=== PATIENT | male | born 1985 | race Two or more races ===

== ENCOUNTER 2022-01-14 09:53 | Outpatient (REF) | payer MEDICAID, SELFPAY ==
--- NOTE | 2022-01-14 16:52 | MHC.AU.HFU ---
Hearing Instrument Follow-Up- Binaural Date of Visit: 01/14/22 Follow-Up Summary: Patient obtained a ReSound BTE hearing aid from [facility]. They no longer accept his current insurance, so he has returned to our clinic. The metal tone hook broke on his right hearing aid. He uses a cochlear implant on the left side. Replaced metal tone hook. Performed hearing aid maintenance on the right aid, vacuumed microphones, soaked earmold in denture school cleaner, and retubed. Aid is in good working condition. Charged the transfer of care fee to his insurance since he did not obtain this new hearing aid through our clinic. Recommendations: Recommendations: Hearing instrument maintenance in 6 months, or sooner if needed. Please contact our clinic with any questions or concerns. Patient will call if problems persist. Diagnosis Code(s): Primary Diagnosis: H90.3 Bilateral Sensorineural Hearing Loss Signature: Provider: Chi Nguyen, CCC-A
== END 2022-01-14 09:54 | disposition home or self-care (01) ==
LOC: HO.HAP 09:53
PROVIDERS: Visit Provider Family Medicine
DX: Z46.1 Encounter for fitting and adjustment of hearing aid (principal); H90.3 Sensorineural hearing loss, bilateral
CPT/HCPCS: V5011

== ENCOUNTER 2022-02-25 09:26 | Outpatient (REF) | payer MEDICAID, SELFPAY | END 2022-02-25 09:27 | disposition home or self-care (01) | LOC: HO.HAP 09:26 | PROVIDERS: Visit Provider Nurse Practitioner Family | DX: Z46.1 Encounter for fitting and adjustment of hearing aid (principal); H90.3 Sensorineural hearing loss, bilateral | CPT/HCPCS: V5275 ==

== ENCOUNTER 2022-04-06 11:02 | Outpatient (REF) | payer MEDICAID, SELFPAY | END 2022-04-06 11:03 | disposition home or self-care (01) | LOC: HO.HAP 11:02 | PROVIDERS: Visit Provider Nurse Practitioner Family | DX: Z46.1 Encounter for fitting and adjustment of hearing aid (principal); H90.3 Sensorineural hearing loss, bilateral | CPT/HCPCS: V5264 ==

== ENCOUNTER 2023-01-14 09:00 | Emergency (ER) | payer OTHER, MEDICAID, SELFPAY ==
[2023-01-14 09:14] VITALS: BP 134/83; PULSE 106; RESP 18; TEMP 36.6; O2SAT 98; BMI 35.6
--- NOTE | 2023-01-14 09:27 | ED.ANIMALBIT ---
HPI - Animal Bite General Chief Complaint: Animal Bite Stated Complaint: dog bite on leg Time Seen by Provider: 01/14/23 09:22 Source: patient Mode of arrival: ambulatory Limitations: no limitations History of Present Illness HPI narrative: 37 yo male here with dog bite to left thigh which occurred this morning from a neighbors dog (bandar valdovinos) Unknown rabies status for dog +swelling and pain to left thigh w/ abrasion to skin Related Data Previous Rx's Medication Instructions Recorded amoxicillin 875 mg-potassium 1 tab PO BID #14 tabs 01/14/23 clavulanate 125 mg tablet Allergies Allergy/AdvReac Type Severity Reaction Status Date / Time No Known Allergies Allergy Verified 01/14/23 09:16 [No Known Allergies*] Review of Systems Review of Systems: Yes all other systems are reviewed and are negative Constitutional: Constitutional: Reports no additional constitutional complaints, Denies body ache(s), Denies chills, Denies fever(s), Denies headache(s) and Denies weakness Eyes: Eyes: Reports no additional eye complaints and Denies change in vision ENT: Reports system reviewed and no additional complaints, except as documented, Denies dizziness, Denies headache(s), Denies nasal congestion, Denies nasal discharge and Denies neck pain Cardiovascular: Cardiovascular: Reports no additional cardiovascular complaints, Denies chest pain, Denies leg edema and Denies dyspnea Respiratory: Respiratory: Reports no additional respiratory complaints, Denies cough and Denies dyspnea Gastrointestinal: Gastrointestinal: Reports no additional gastrointestinal complaints, Denies abdominal pain, Denies diarrhea, Denies nausea and Denies vomiting Genitourinary: Genitourinary: Denies urinary incontinence Musculoskeletal: Musculoskeletal: Reports no additional musculoskeletal complaints, Denies back pain, Denies arthralgias, Denies joint swelling, Denies neck pain, Denies numbness and Denies tingling Integumentary/Breasts: Skin/Breast: Reports system reviewed and no additional complaints, except as docu, Denies rash and Reports wounds Neurologic: Reports system reviewed and no additional complaints, except as documented, Denies dizziness, Denies headache(s), Denies numbness, Denies tingling and Denies weakness PMFSH Past Medical History Attestation statement: The following information was validated with the patient. Source: old records reviewed and nursing notes reviewed Physical Exam ED Vital Signs: Vital Signs - 24 hr 01/14/23 09:14 Temperature 97.9 F Pulse Rate 106 H Respiratory Rate 18 Blood Pressure 134/83 Pulse Oximetry 98 Oxygen Delivery Method Room Air BMI result Body Mass Index 35.6 Const General: cooperative, healthy appearing, comfortable and no acute distress Orientation/consciousness: patient oriented x3 Limitations: no limitations HENMT Head: Yes normal to inspection Ears: hearing grossly normal bilaterally Eyes General: appearance normal, both eyes and all related structures Pupils: Equal, round and reactive pupils present Neck Neck: Yes normal visual inspection Chest Chest palpation & inspection: normal inspection of the chest Resp Effort & Inspection: normal respiratory effort Cardio Peripheral pulses: Peripheral pulses 2+ throughout GI Inspection: Yes normal to inspection Neuro General: patient oriented x3 and moves all extremities Cranial nerves: Yes Equal, round and reactive pupils present Cognition (Neuro): normal cognition Gait exam (Neuro): Normal gait present Extrem Other: To the left lateral thigh there is an puncture wound with local swelling FROM of the extremity No active bleeding Medical Decision Making Medical Decision Making MDM Narrative: 37 yo male here wth dog bite to left thigh Will need to cleanse wound Unaware of neighbors dog rabies status Tetanus status unknown Rabies series, tetanus, PO augmentin for home Discharge Plan Discharge Clinical Impression: Dog bite Patient Disposition: Home, Self-Care Instructions: Animal Bite (ED), Rabies (ED) Additional Instructions: Keep the wound clean, covered and dry. Return for signs of infection (redness, fever drainage, odor) Motrin or Tylenol for pain Prescriptions: New amoxicillin-pot clavulanate 875-125 mg tablet 1 tab PO BID Qty: 14 0RF Referrals: Physician,Unknown J [Primary Care Provider] -
--- NOTE | 2023-01-14 09:38 | PC.NURSE ---
Pt reports he was just here for cellulitis a couple of weeks ago, however the redness is not getting better, and has not developed numbness and tingling in his L foot.
[2023-01-14] MEDS: Rabies Immune Globulin/PF 900 UNIT/3 ML VIAL 2449.4 UNIT IM (10:09)
[2023-01-14] MEDS: Diphth,Pertus(ACell),Tet Adult 0.5 ML SYRINGE IM (10:09)
[2023-01-14] MEDS: Rabies Vaccine, Human Diploid (Imovax) 1 ML VIAL IM (10:10)
== END 2023-01-14 10:27 | disposition home or self-care (01) ==
PROVIDERS: Emergency Provider Emergency Medicine
DX: S71.152A Open bite, left thigh, initial encounter (principal); S70.312A Abrasion, left thigh, initial encounter; W54.0XXA Bitten by dog, initial encounter; Y93.9 Activity, unspecified; Y92.9 Unspecified place or not applicable; Y99.9 Unspecified external cause status; Z29.14 Encounter for prophylactic rabies immune globulin; Z20.3 Contact with and (suspected) exposure to rabies; Z79.899 Other long term (current) drug therapy; Z23 Encounter for immunization
CPT/HCPCS: 90375; 90471; 90472; 90675; 90715; 96372; 99284

== ENCOUNTER 2023-01-17 14:48 | Outpatient (REF) | payer OTHER, MEDICAID, SELFPAY | END 2023-01-17 14:49 | disposition home or self-care (01) | LOC: HO.MDS 14:48 | PROVIDERS: Visit Provider Nurse Practitioner Family | DX: S71.152A Open bite, left thigh, initial encounter (principal); W54.0XXA Bitten by dog, initial encounter; Y93.9 Activity, unspecified; Y92.9 Unspecified place or not applicable; Y99.9 Unspecified external cause status; Z20.3 Contact with and (suspected) exposure to rabies | CPT/HCPCS: 90471; 90675 ==

== ENCOUNTER 2023-01-24 07:22 | Outpatient (REF) | payer OTHER, MEDICAID, SELFPAY | END 2023-01-24 07:23 | disposition home or self-care (01) | LOC: HO.MDS 07:22 | PROVIDERS: Visit Provider Nurse Practitioner Family | DX: S71.152A Open bite, left thigh, initial encounter (principal); W54.0XXA Bitten by dog, initial encounter; Y93.9 Activity, unspecified; Y92.9 Unspecified place or not applicable; Y99.9 Unspecified external cause status; Z20.3 Contact with and (suspected) exposure to rabies | CPT/HCPCS: 90471; 90675 ==

== ENCOUNTER 2024-08-12 09:03 | Inpatient (IN) | payer OTHER, SELFPAY ==
[2024-08-12] VITALS (8 sets, daily range): BP systolic 98–128; BP diastolic 48–81; PULSE 55–95; RESP 18–26; TEMP 36.2–36.9; O2SAT 98–100; BMI 35.0
--- NOTE | ~2024-08-12 | US_ITS ---
EXAMINATION: US ABDOMEN LIMITED HISTORY: RUQ pain TECHNIQUE: Real-time grayscale ultrasound imaging of the right upper quadrant was performed and images were reviewed. COMPARISON: There are no prior studies for comparison. FINDINGS: Liver: The liver is normal in size, but demonstrates mildly increased echotexture, consistent with steatosis. No focal mass or intrahepatic biliary ductal dilatation is identified. There is normal hepatopedal flow in the portal vein. Gallbladder and biliary tree: There are numerous shadowing calculi in the gallbladder. There is no wall thickening or pericholecystic fluid. The patient is focally tender in the region of the gallbladder, consistent with a sonographic Cintron sign. The common bile duct is normal in caliber measuring 3 mm. Right Kidney: The right kidney measures 11.4 cm in length. The right kidney is unremarkable, without evidence of masses, hydronephrosis, or calculi. Pancreas: The pancreatic head and neck are unremarkable. The remainder the pancreas is obscured by bowel gas. Abdominal aorta and inferior vena cava: The visualized portions of the abdominal aorta and inferior vena cava are normal in caliber. There is no free fluid in the right upper quadrant. US/US abdomen limited IMPRESSION: Cholelithiasis with a positive sonographic Cintron sign, compatible with acute cholecystitis. Electronically signed by: Curtis Garner MD 08/12/2024 01:24 PM [facility]
[2024-08-12] MEDS: Ondansetron ODT 4 MG TAB.RAPDIS TRANSLINGU (09:32)
--- NOTE | 2024-08-12 11:25 | ED.NAVMDI ---
HPI - Nausea/Vomiting/Diarrhea General Chief complaint: Abdominal Pain Stated complaint: vomiting Time Seen by Provider: 08/12/24 11:31 Source: patient and family Mode of arrival: ambulatory Limitations: no limitations History of Present Illness ED Provider: LISA PAINTING Narrative: 38 yo male with PMH of hearing impairment he c/o starting upper abdominal pain and n/v since 8pm. He feels weak and tired. He denies a fever. He has chills and feels hot. No recent travel, procedures, no abx use. No sick contacts. Social drinker, prior appendectomy. He states he feels so tired and weak. MD elicited complaint: nausea, vomiting and abdominal pain Onset (ago): day(s) (last night) Description of vomiting: watery and bilious Associated nausea: Yes Associated abdominal pain: Yes Location of pain: epigastric and RUQ Radiation: diffuse Pain consistency: constant Severity: severe Quality: stabbing Exacerbating factors: movement Relieving factors: none Associated symptoms: fever/chills, loss of appetite, malaise and nausea/vomiting Related Data Home Medications ?Medication ?Instructions ?Recorded ?Confirmed betamethasone dipropionate 0.05 % 1 appl topical TUFR 08/12/24 08/12/24 topical ointment bupropion HCl 300 mg 24 hr tablet, 300 mg PO DAILY 08/12/24 08/12/24 extended release dextroamphetamine-amphetamine ER 10 mg PO DAILY@1200 08/12/24 08/12/24 10 mg 24hr capsule,extend release dextroamphetamine-amphetamine ER 30 mg PO DAILY 08/12/24 08/12/24 30 mg 24hr capsule,extend release fluoxetine 20 mg capsule 60 mg PO DAILY 08/12/24 08/12/24 Allergies Allergy/AdvReac Type Severity Reaction Status Date / Time No Known Allergies Allergy Verified 08/12/24 09:30 [No Known Allergies*] Review of Systems Review of Systems: Constitutional : No Weight loss, No Fever, pos Chills ENT/Mouth : No sore throat, No Rhinorrhea Eyes: No Swelling, No Redness Cardiovascular : No Chest Pain, No SOB, NoEdema Respiratory : No Cough, No Sputum, No Wheezing Gastrointestinal : Positive Nausea, Positive Vomiting, no Diarrhea, positive abdominal Pain, No Hematochezia, No Melena Genitourinary : No Dysuria, No Urinary Frequency, No Hematuria, No Urgency Musculoskeletal : No joint pain, No Myalgias, No Joint Swelling Skin : No Skin Lesions, No rash Neuro : No Weakness, No Numbness, No Dizziness, No Headache Psych : No Anxiety/Panic, No Depression All other systems reviewed and are negative. Gastrointestinal: Gastrointestinal: Reports nausea PMFSH Past Medical History Attestation statement: The following information was validated with the patient. Source: old records reviewed Medical History Hearing loss Social History Social History (Updated 08/12/24 @ 11:36 by Niurka Anton DO) Patient Tobacco Use Status: Never used Tobacco Smoked in Last 30 Days: No Use of substances other than those prescribed or required for medical reasons: No Advance Directives: No Advance Directives Information Provided: Yes Do you have a plan to hurt others: No Plan Physical Exam Vital Signs: Vital Signs: Last Vital Signs Temp 98.3 F 08/12/24 12:43 Pulse 73 08/12/24 12:43 Resp 18 08/12/24 12:43 BP 101/48 L 08/12/24 12:43 Pulse Ox 98 08/12/24 12:43 O2 Del Method Room Air 08/12/24 12:43 BMI result Body Mass Index 35.0 Appearance: Alert. Oriented X3. in pain mild acute distress. Eyes: Pupils equal, round and reactive to light. ENT: Pharynx dry MM Neck: Normal inspection. Neck supple. CVS: Normal heart rate and rhythm. Pulses normal. Respiratory: No respiratory distress. Breath sounds normal. Abdomen: Soft and marked ttp in RUQ + noel's sign Skin: Skin warm and dry. Normal skin color. Normal skin turgor. Extremities: No lower extremity edema. No calf ttp Neuro: Oriented X 3. No motor deficit. No sensory deficit. CN2-12 intact Medications Administered Discontinued Medications Generic Name Dose Route Start Last Admin Trade Name Freq PRN Reason Stop Dose Admin Diphenhydramine HCl 25 mg 08/12/24 11:28 08/12/24 11:52 Diphenhydramine Hcl 50 Mg/Ml Vial IVPUSH 08/12/24 11:29 25 mg ONCE ONE Administration Lactated Ringer's 1,000 mls @ 999 mls/hr 08/12/24 11:28 08/12/24 14:09 Lr IV 08/12/24 12:28 Infused .Q1H1M ONE Infusion Lactated Ringer's 1,000 mls @ 999 mls/hr 08/12/24 11:29 08/12/24 14:09 Lr IV 08/12/24 12:29 Infused .Q1H1M ONE Infusion Metoclopramide HCl 10 mg 08/12/24 11:28 08/12/24 11:52 Metoclopramide Hcl 10 Mg/2 Ml Vial IVPUSH 08/12/24 11:29 10 mg ONCE ONE Administration Morphine Sulfate 4 mg 08/12/24 11:29 08/12/24 11:52 Morphine Sulfate 4 Mg/Ml Cartridge IVPUSH 08/12/24 11:30 4 mg ONCE ONE Administration Protocol Ondansetron HCl 4 mg 08/12/24 09:31 08/12/24 09:32 Ondansetron Odt 4 Mg Tab.Rapdis TRANSLINGU 08/12/24 09:32 4 mg ONCE ONE Administration Medical Decision Making Medical Decision Making MDM Narrative: 38 yo male with PMH of appendectomy here with c/o upper abdominal pain now intractable n/v with weakness will obtain POC given his presentation to monitor for DKA, labs, US for gallbladder pathology could also be pancreatitis - IVF x 2L, POC labs, US, basic labs and monitor. Differential Diagnosis Differential Diagnoses: The differential diagnosis associated with the presentation includes viral syndrome, gastritis, pancreatitis, biliary colic Admission/Observation Consideration of admission/observation: Escalation of care including admission/observation considered at this time infection suspected 133pm cultures, lactic acid, zosyn ordered. Lab Data [facility] Lab Attestation statement: I reviewed the patient's lab results. 08/12/24 11:43 08/12/24 11:43 Labs: Lab Results 08/12/24 08/12/24 08/12/24 Range/Units 11:39 11:43 13:10 WBC 13.3 H (4.8-10.8) X10*3/uL RBC 5.33 (4.60-5.80) X10*6/uL Hgb 15.9 (14.0-18.0) g/dl Hct 45.3 (42.0-52.0) % MCV 85.0 (80.0-98.0) fL MCH 29.8 (27.0-33.0) pg MCHC 35.1 (31.0-36.0) g/dl RDW 11.9 (11.0-16.0) % Plt Count 349 (160-400) X10*3/uL MPV 8.5 L (9.4-12.4) fL Immature Gran % (Auto) 0.3 (0.0-0.4) % Neut % (Auto) 88.6 H (45-73) % Lymph % (Auto) 5.8 L (20-40) % Sawyer % (Auto) 5.1 (2-11) % Eos % (Auto) 0.0 (0-4) % Baso % (Auto) 0.2 (0-2) % Lymph # (Auto) 0.8 L (1.2-4.9) X10*3/uL Sawyer # (Auto) 0.7 (0.1-1.2) X10*3/uL Eos # (Auto) 0.0 (0.0-0.4) X10*3/uL Baso # (Auto) 0.0 (0.0-0.2) X10*3/uL Abs Immat Gran (auto) 0.04 H (0.00-0.03) X10*3/uL Absolute Neuts (auto) 11.8 H (2.0-8.3) x10*3/uL Absolute Nucleated RBC 0.000 (0.0-0.012) X10*3/uL Nucleated RBC % (auto) 0.0 (0.0-0.2) /100WBC Sodium 142 (135-145) mmol/L Potassium 4.3 (3.3-5.1) mmol/L Chloride 106 (96-108) mmol/L Carbon Dioxide 25 (22-29) mmol/L Anion Gap 15 (12-20) BUN 13 (9-16) mg/dL Creatinine 0.84 (0.5-1.4) mg/dL Estim Creat Clear Calc 158.7 Estimated GFR > 60 POC Glucose 105 (60-115) mg/dL Random Glucose 134 H (60-115) mg/dL Lactic Acid (0.5-2.0) mmol/L Calcium 10.1 (8.4-10.2) mg/dL Total Bilirubin 1.2 H (0.0-1.0) mg/dL AST 16 (5-37) U/L ALT 18 (0-40) U/L Alkaline Phosphatase 96 (39-117) U/L Total Protein 8.0 (6.5-8.0) g/dL Albumin 4.9 (3.5-5.0) g/dL Lipase 29 (8-78) U/L Influenza Type A (PCR) NEGATIVE (Negative) Influenza Type B (PCR) NEGATIVE (Negative) RSV RNA Qual (PCR) NEGATIVE (Negative) SARS-CoV-2 RNA (RT-PCR) NEGATIVE (Negative) 08/12/24 Range/Units 13:58 WBC (4.8-10.8) X10*3/uL RBC (4.60-5.80) X10*6/uL Hgb (14.0-18.0) g/dl Hct (42.0-52.0) % MCV (80.0-98.0) fL MCH (27.0-33.0) pg MCHC (31.0-36.0) g/dl RDW (11.0-16.0) % Plt Count (160-400) X10*3/uL MPV (9.4-12.4) fL Immature Gran % (Auto) (0.0-0.4) % Neut % (Auto) (45-73) % Lymph % (Auto) (20-40) % Sawyer % (Auto) (2-11) % Eos % (Auto) (0-4) % Baso % (Auto) (0-2) % Lymph # (Auto) (1.2-4.9) X10*3/uL Sawyer # (Auto) (0.1-1.2) X10*3/uL Eos # (Auto) (0.0-0.4) X10*3/uL Baso # (Auto) (0.0-0.2) X10*3/uL Abs Immat Gran (auto) (0.00-0.03) X10*3/uL Absolute Neuts (auto) (2.0-8.3) x10*3/uL Absolute Nucleated RBC (0.0-0.012) X10*3/uL Nucleated RBC % (auto) (0.0-0.2) /100WBC Sodium (135-145) mmol/L Potassium (3.3-5.1) mmol/L Chloride (96-108) mmol/L Carbon Dioxide (22-29) mmol/L Anion Gap (12-20) BUN (9-16) mg/dL Creatinine (0.5-1.4) mg/dL Estim Creat Clear Calc Estimated GFR POC Glucose (60-115) mg/dL Random Glucose (60-115) mg/dL Lactic Acid 2.2 H* (0.5-2.0) mmol/L Calcium (8.4-10.2) mg/dL Total Bilirubin (0.0-1.0) mg/dL AST (5-37) U/L ALT (0-40) U/L Alkaline Phosphatase (39-117) U/L Total Protein (6.5-8.0) g/dL Albumin (3.5-5.0) g/dL Lipase (8-78) U/L Influenza Type A (PCR) (Negative) Influenza Type B (PCR) (Negative) RSV RNA Qual (PCR) (Negative) SARS-CoV-2 RNA (RT-PCR) (Negative) Independent Interpretation I performed an independent interpretation of an: Ultrasound Radiology Impression Discussion of test interpretation with radiology: I have reviewed the radiologist's reading. Independent Historian Clinical information obtained from an independent historian. History obtained from or confirmed by: Spouse Critical Care Time Critical Care Time Critical Care Time: Yes Total Critical Care Time: 45 Attestation: repeat IV morphine with improvement in pain, 3L of IVF to resuscitate I attest to this time spent taking care of the patient Discharge Plan Discharge Clinical Impression: Acute cholecystitis Nausea & vomiting Qualifiers: Vomiting type: unspecified Qualified Code(s): R11.2 - Nausea with vomiting, unspecified Patient Disposition: Admitted As Inpatient Print Language: Portuguese
[2024-08-12] MEDS: Lactated Ringers 1,000 ML 999 ML IV ×3 (11:47→14:56)
[2024-08-12 11:49] LABS: MANUAL DIFF FLAG NO
[2024-08-12 11:52] LABS: Basophils Percent Auto 0.2 % (0-2); Hematocrit 45.3 % (42.0-52.0); Hemoglobin 15.9 g/dl (14.0-18.0); Imm Gran Abs Auto 0.04 X10*3/uL (0.00-0.03); Imm Gran Pct Auto 0.3 % (0.0-0.4); Lymphocytes Absolute Auto 0.8 X10*3/uL (1.2-4.9); Lymphocytes Percent Auto 5.8 % (20-40); Mean Corpuscular HGB Conc 35.1 g/dl (31.0-36.0); Mean Corpuscular Hemoglobin 29.8 pg (27.0-33.0); Mean Platelet Volume 8.5 fL (9.4-12.4); Monocytes Absolute Auto 0.7 X10*3/uL (0.1-1.2); Monocytes Percent Auto 5.1 % (2-11); Neutrophils Absolute Auto 11.8 x10*3/uL (2.0-8.3); Neutrophils Percent Auto 88.6 % (45-73); Platelet Count 349 X10*3/uL (160-400); Red Blood Count 5.33 X10*6/uL (4.60-5.80); Red Cell Distribution Width 11.9 % (11.0-16.0); White Blood Count 13.3 X10*3/uL (4.8-10.8)
[2024-08-12] MEDS: diphenhydrAMINE HCL 50 MG/ML VIAL 25 MG IVPUSH (11:52)
[2024-08-12] MEDS: Morphine Sulfate 4 MG/ML CARTRIDGE IVPUSH (11:52)
[2024-08-12] MEDS: Metoclopramide HCl 10 MG/2 ML VIAL IVPUSH (11:52)
[2024-08-12 12:02] LABS: Lipase 29 U/L (8-78)
[2024-08-12 12:05] LABS: Alanine Aminotransferase 18 U/L (0-40); Albumin Level 4.9 g/dL (3.5-5.0); Alkaline Phosphatase 96 U/L (39-117); Anion Gap 15 (12-20); Aspartate Amino Transferase 16 U/L (5-37); Bilirubin Total 1.2 mg/dL (0.0-1.0); Blood Urea Nitrogen 13 mg/dL (9-16); Calcium 10.1 mg/dL (8.4-10.2); Carbon Dioxide 25 mmol/L (22-29); Chloride 106 mmol/L (96-108); Creatinine Clr Calc Pharmacy 158.7; Estimated Glomerular Filt Rate > 60; Glucose Random 134 mg/dL (60-115); Potassium 4.3 mmol/L (3.3-5.1); Sodium 142 mmol/L (135-145)
[2024-08-12 12:06] LABS: Glucose, Whole Blood 105 mg/dL (60-115)
[2024-08-12 13:58] LABS: Influenza A PCR NEGATIVE (Negative); Influenza B PCR NEGATIVE (Negative); Resp Syncy Virus RNA Qual PCR NEGATIVE (Negative); SARS COV2 PCR INHOUSE NEGATIVE (Negative)
[2024-08-12 14:24] LABS: Lactic Acid 2.2 mmol/L (0.5-2.0)
--- NOTE | 2024-08-12 14:26 | PHA.MEDREC ---
Addendum entered by Samantha Carrillo RPh 08/12/24 14:44: reviewed by [facility]. Original Note: Pharmacy Consult ? Medication Reconciliation Pharmacy has completed the medication reconciliation. Spoke to patient to confirm med list. Patient was able to name all medications and they all matched claims.
[2024-08-12] MEDS: HYDROmorphone HCl 0.5 MG/0.5 ML SYRINGE IVPUSH ×2 (14:55→18:36)
[2024-08-12] MEDS: Piperacillin Sodium/Tazobactam 3.375 GM in 0.9 % Sodium Chloride 50 ML IV ×2 (14:55→18:36)
--- NOTE | 2024-08-12 15:08 | PM.HPGS ---
History of Present Illness History of Present Illness Date of Service: 08/12/24 Chief complaint: vomiting Narrative: Az Quarles is a 38 year old male who presents with a proximally 2 day history of right upper quadrant pain epigastric pain radiating around to his back. Patient had some occasional nausea and vomiting associated with the pain. No diarrhea. No unusual diet. No sick contacts. No recent foreign travel. No new meds. He has had this several times in the past but because of significant progression of symptoms on this episode, he presents to the emergency department which I am workup demonstrates findings consistent with acute cholecystitis. Patient had ultrasound demonstrated cholelithiasis, and sonographic Cintron's sign. Patient was presents here with his . Chart was reviewed and patient evaluated. White count 13.6. LFTs essentially within normal limits although bilirubin was 1.2. [facility] Past Medical History Medical History Hearing loss Social History Social History (Updated 08/12/24 @ 11:36 by Niurka Anton DO) Patient Tobacco Use Status: Never used Tobacco Smoked in Last 30 Days: No Use of substances other than those prescribed or required for medical reasons: No Advance Directives: No Advance Directives Information Provided: Yes Do you have a plan to hurt others: No Plan Meds Allergies Allergy/AdvReac Type Severity Reaction Status Date / Time No Known Allergies Allergy Verified 08/12/24 09:30 [No Known Allergies*] Active Medications: Current Medications Hydromorphone HCl (Hydromorphone Hcl 0.5 Mg/0.5 Ml Syringe) 0.5 mg IVPUSH Q3H PRN; Protocol PRN Reason: Pain, Moderate(Pain Scale 4-6) Last Admin: 08/12/24 14:55 Dose: 0.5 mg Lactated Ringer's (Lr) 1,000 mls @ 999 mls/hr IV .Q1H1M ONE Stop: 08/12/24 15:24 Last Admin: 08/12/24 14:56 Dose: 999 mls/hr Home Medications ?Medication ?Instructions ?Recorded ?Confirmed ?Last Taken ?Type betamethasone dipropionate 0.05 % 1 appl topical TUFR 08/12/24 08/12/24 08/11/24 History topical ointment bupropion HCl 300 mg 24 hr tablet, 300 mg PO DAILY 08/12/24 08/12/24 08/11/24 History extended release dextroamphetamine-amphetamine ER 10 mg PO DAILY@1200 08/12/24 08/12/24 08/11/24 History 10 mg 24hr capsule,extend release dextroamphetamine-amphetamine ER 30 mg PO DAILY 08/12/24 08/12/24 08/11/24 History 30 mg 24hr capsule,extend release fluoxetine 20 mg capsule 60 mg PO DAILY 08/12/24 08/12/24 08/11/24 History Physical Exam Vital Signs: Vital Signs: Last Vital Signs Temp 98.3 F 08/12/24 12:43 Pulse 73 08/12/24 12:43 Resp 18 08/12/24 12:43 BP 101/48 L 08/12/24 12:43 Pulse Ox 98 08/12/24 12:43 O2 Del Method Room Air 08/12/24 12:43 BMI result Body Mass Index 35.0 Eyes: Other: Anicteric Chest: Other: Chest breath sounds bilaterally, HS 1 in 2 GI: Other: Abdomen moderately corpulent, soft. Marked right upper quadrant tenderness. Results Results Labs: Short CBC 08/12/24 Range/Units 11:43 WBC 13.3 H (4.8-10.8) X10*3/uL Hgb 15.9 (14.0-18.0) g/dl Hct 45.3 (42.0-52.0) % Plt Count 349 (160-400) X10*3/uL BMP 08/12/24 11:43 Sodium 142 Potassium 4.3 Chloride 106 Carbon Dioxide 25 BUN 13 Creatinine 0.84 Calcium 10.1 Liver Function 08/12/24 Range/Units 11:43 Total Bilirubin 1.2 H (0.0-1.0) mg/dL AST 16 (5-37) U/L ALT 18 (0-40) U/L Alkaline Phosphatase 96 (39-117) U/L Albumin 4.9 (3.5-5.0) g/dL Assessment and Plan (1) Acute cholecystitis: Status: Acute Plan Risks, benefits, alternatives of laparoscopic possible open cholecystectomy reviewed with the patient and included but not limited to bleeding, infection, recurrence of symptoms, numbness, pain, scarring, bowel or bile duct injury or leak and the patient wishes to proceed with this. He will be an add on case most likely for tomorrow because the OR schedule as quite busy this evening. All questions answered. Patient was in the meantime will be admitted with IV antibiotics and analgesics. Quality Stroke Does the patient have a stroke diagnosis?: No VTE Prior VTE?: No VTE Risk Level:: Surgical - low VTE Device Contraindication: N/A - Device Ordered VTE Drug Contraindication: Treatment Not Indicated Procedures Date of Service Date of Service: 08/12/24
[2024-08-12 16:04] LABS: Reflex Lactate? Lactic Acid Added
[2024-08-12 17:25] LABS: ~Lactic Acid-LAB USE ONLY 0.9 mmol/L (0.5-2.0)
--- NOTE | 2024-08-12 17:51 | PC.NURSE ---
per Dr. Will - plan for pt to go to surgery tomorrow. this RN ordered pt a meal tray at this time
[2024-08-12] MEDS: ondansetron HCL 4 MG/2 ML VIAL IVPUSH (18:36)
[2024-08-12] MEDS: Lactated Ringers 1,000 ML 125 ML IVCONT (18:37)
[2024-08-13] VITALS (9 sets, daily range): BP systolic 115–136; BP diastolic 72–99; PULSE 74–113; RESP 16–20; TEMP 36.3–37.7; O2SAT 94–99
[2024-08-13] MEDS: Piperacillin Sodium/Tazobactam 3.375 GM in 0.9 % Sodium Chloride 50 ML IV ×3 (01:08→12:54)
[2024-08-13] MEDS: 0.9 % Sodium Chloride Flush 3 ML SYRINGE IVFLUSH ×2 (01:22→08:36)
[2024-08-13] MEDS: Lactated Ringers 1,000 ML 125 ML IVCONT (03:00)
--- NOTE | 2024-08-13 08:27 | P.PNGS_ITS ---
Subjective Subjective Date of Service: 08/13/24 Interval history: RUQ pain improved but still c/o some discomfort. Denies further nausea/vomiting. Physical Exam 2 Vital Signs: Vital Signs: Last Vital Signs Temp 98.3 F 08/13/24 02:55 Pulse 113 H 08/13/24 02:55 Resp 20 08/13/24 02:55 BP 136/99 H 08/13/24 02:55 Pulse Ox 97 08/13/24 02:55 O2 Del Method Room Air 08/13/24 02:55 O2 Flow Rate 98 08/12/24 20:24 BMI result Body Mass Index 35.0 Const: General: comfortable, no acute distress and alert O rientation/consciousness: patient oriented x3 Resp: Effort & Inspection: normal respiratory effort Cardio: Rate: tachycardic GI: Inspection: Yes normal to inspection and No distended Palpation (GI): S oft to palpation, Tenderness to palpation present (GI) in the RUQ and Cintron's sign positive and no guarding Skin: General skin exam: no rashes or lesions noted and no jaundice Neuro: General: patient oriented x3 and moves all extremities Objective Data Active Medications Acetaminophen (Acetaminophen 325 Mg Tablet) 650 mg PO Q6H PRN PRN Reason: Pain, Mild 1-3,fever,headache Calcium Carbonate (Calcium Carbonate 750 Mg Tab.Chew) 750 mg PO Q4H PRN PRN Reason: Heartburn Hydromorphone HCl (Hydromorphone Hcl 0.5 Mg/0.5 Ml Syringe) 0.5 mg IVPUSH Q3H PRN; Protocol PRN Reason: Pain, Moderate(Pain Scale 4-6) Last Admin: 08/12/24 18:36 Dose: 0.5 mg Documented By: HOOD Hydromorphone HCl (Hydromorphone Hcl 1 Mg/Ml Syringe) 0.5 mg IVPUSH Q4H PRN; Protocol PRN Reason: Pain, Severe (Pain Scale 7-10) Lactated Ringer's (Lr) 1,000 mls @ 125 mls/hr IVCONT .Q8H [facility] Last Admin: 08/13/24 03:00 Dose: 125 mls/hr Documented By: EMILIA Piperacillin Sod/Tazobactam (Sod 3.375 gm/ Sodium Chloride) 50 mls @ 100 mls/hr IV Q6H [facility] Last Admin: 08/13/24 06:45 Dose: 100 mls/hr Documented By: EMILIA Magnesium Hydroxide (Milk Of Magnesia 30 Ml Oral.Susp) 30 ml PO DAILY PRN PRN Reason: Constipation Melatonin (Melatonin 3 Mg Tablet) 6 mg PO BEDTIME PRN PRN Reason: Insomnia Ondansetron HCl (Ondansetron Hcl 4 Mg/2 Ml Vial) 4 mg IVPUSH Q8H PRN PRN Reason: Nausea and Vomiting Last Admin: 08/12/24 18:36 Dose: 4 mg Documented By: HOOD Sodium Chloride (0.9 % Sodium Chloride Flush 3 Ml Syringe) 3 ml IVFLUSH QSHIFT [facility] Last Admin: 08/13/24 01:22 Dose: 3 ml Documented By: EMILIA Labs 08/12/24 11:43 08/12/24 11:43 Labs: Laboratory Results - last 24 hr 08/12/24 08/12/24 08/12/24 11:39 11:43 13:10 MCV 85.0 MCH 29.8 MCHC 35.1 RDW 11.9 Plt Count 349 MPV 8.5 L Immature Gran % (Auto) 0.3 Neut % (Auto) 88.6 H Lymph % (Auto) 5.8 L [place] % (Auto) 5.1 Eos % (Auto) 0.0 Baso % (Auto) 0.2 Lymph # (Auto) 0.8 L [place] # (Auto) 0.7 Eos # (Auto) 0.0 Baso # (Auto) 0.0 Abs Immat Gran (auto) 0.04 H Absolute Neuts (auto) 11.8 H Absolute Nucleated RBC 0.000 Nucleated RBC % (auto) 0.0 Anion Gap 15 Estim Creat Clear Calc 158.7 Estimated GFR > 60 POC Glucose 105 Random Glucose 134 H Lactic Acid Lactic Acid F/U @ 2Hr Calcium 10.1 Total Bilirubin 1.2 H AST 16 ALT 18 Alkaline Phosphatase 96 Total Protein 8.0 Albumin 4.9 Lipase 29 Influenza Type A (PCR) NEGATIVE Influenza Type B (PCR) NEGATIVE RSV RNA Qual (PCR) NEGATIVE SARS-CoV-2 RNA (RT-PCR) NEGATIVE 08/12/24 08/12/24 13:58 16:53 MCV MCH MCHC RDW Plt Count MPV Immature Gran % (Auto) Neut % (Auto) Lymph % (Auto) [place] % (Auto) Eos % (Auto) Baso % (Auto) Lymph # (Auto) [place] # (Auto) Eos # (Auto) Baso # (Auto) Abs Immat Gran (auto) Absolute Neuts (auto) Absolute Nucleated RBC Nucleated RBC % (auto) Anion Gap Estim Creat Clear Calc Estimated GFR POC Glucose Random Glucose Lactic Acid 2.2 H* Lactic Acid F/U @ 2Hr 0.9 Calcium Total Bilirubin AST ALT Alkaline Phosphatase Total Protein Albumin Lipase Influenza Type A (PCR) Influenza Type B (PCR) RSV RNA Qual (PCR) SARS-CoV-2 RNA (RT-PCR) Procedures Date of Service Date of Service: 08/13/24 Progress Note: A&P Assessment and plan (1) Acute cholecystitis: Status: Acute Plan Plan for lap ccy, possible open later today. All questions answered. Cont IV abx, IVF, NPO status, PRN analgesics. Time Spent With Patient Time: Total time managing care of this patient today ____ minutes. Quality Stroke Does the patient have a stroke diagnosis?: No VTE Prior VTE?: No VTE Risk Level:: Surgical - low VTE Device Contraindication: N/A - Device Ordered VTE Drug Contraindication: Treatment Not Indicated
--- NOTE | 2024-08-13 09:56 | MHC.CM.PN ---
Pt self-care, lives at home with his and daughter. Pts to transport him home at discharge. New HCP completed with pt, now on file. PCP: Dr. Radha Ayala
[2024-08-13 10:24] LABS: Appearance Urine Clear; Color Urine Yellow; Glucose Urine UA Negative (Negative); Leukocyte Esterase Urine Negative (Negative); Nitrite Urine Negative (Negative); PH 6.5 (5.0-9.0); Specific Gravity - Urine 1.015 (1.005-1.025); Urine Blood Negative (Negative); Urine Ketones Negative (Negative); Urine Protein Negative (Neg-Trace)
[2024-08-13] MEDS: Lactated Ringers 1,000 ML 80 ML IVCONT (10:54)
--- NOTE | 2024-08-13 12:06 | P.CONAN_ITS ---
HPI - Anesthesia Eval Consult details Narrative: makayla farley PMFNASH Active Problems Active Problems: All Active Problems Acute cholecystitis (Acute) Nausea & vomiting (Acute) Past Medical History Medical History Hearing loss Family History Family history of problems with anesthesia: No Surgical History History of Problems with Anesthesia: No Social History Social History Household Members: Spouse and Children Housing: Apartment Do you presently have visiting nurse or other home services: No Patient Tobacco Use Status: Never used Tobacco Smoked in Last 30 Days: No Second Hand Smoke Exposure: No Use of substances other than those prescribed or required for medical reasons: No Currently Displaying Signs/Symptoms of Drug Intoxication Withdrawal: No Have you been hit, kicked, punched, or otherwise hurt by someone within the past year? If so, by whom?: No Do you feel safe in your current relationship?: Yes Is there a partner from a previous relationship who is making you feel unsafe now?: No Are you made to feel afraid or neglected: No Are you DNR?: No Advance Directives: No Advance Directives Information Provided: Yes Advance Directives on File: No Do you have a plan to hurt others: No Plan Recently lost weight without trying: No Eating poorly because of decreased appetite: No Nutrition Risks: No Nutritional Risk Poor oral hygiene: No service: No Meds Allergies Allergy/AdvReac Type Severity Reaction Status Date / Time No Known Allergies Allergy Verified 08/12/24 09:30 [No Known Allergies*] Active Medications: Current Medications Acetaminophen (Acetaminophen 325 Mg Tablet) 650 mg PO Q6H PRN PRN Reason: Pain, Mild 1-3,fever,headache Calcium Carbonate (Calcium Carbonate 750 Mg Tab.Chew) 750 mg PO Q4H PRN PRN Reason: Heartburn Hydromorphone HCl (Hydromorphone Hcl 0.5 Mg/0.5 Ml Syringe) 0.5 mg IVPUSH Q3H PRN; Protocol PRN Reason: Pain, Moderate(Pain Scale 4-6) Last Admin: 08/12/24 18:36 Dose: 0.5 mg Hydromorphone HCl (Hydromorphone Hcl 1 Mg/Ml Syringe) 0.5 mg IVPUSH Q4H PRN; Protocol PRN Reason: Pain, Severe (Pain Scale 7-10) Lactated Ringer's (Lr) 1,000 mls @ 125 mls/hr IVCONT .Q8H [facility] Last Admin: 08/13/24 03:00 Dose: 125 mls/hr Piperacillin Sod/Tazobactam (Sod 3.375 gm/ Sodium Chloride) 50 mls @ 100 mls/hr IV Q6H [facility] Last Infusion: 08/13/24 07:20 Dose: Infused Lactated Ringer's (Lr) 1,000 mls @ 80 mls/hr IVCONT .[id number] [facility] Last Admin: 08/13/24 10:54 Dose: 80 mls/hr Magnesium Hydroxide (Milk Of Magnesia 30 Ml Oral.Susp) 30 ml PO DAILY PRN PRN Reason: Constipation Melatonin (Melatonin 3 Mg Tablet) 6 mg PO BEDTIME PRN PRN Reason: Insomnia Ondansetron HCl (Ondansetron Hcl 4 Mg/2 Ml Vial) 4 mg IVPUSH Q8H PRN PRN Reason: Nausea and Vomiting Last Admin: 08/12/24 18:36 Dose: 4 mg Sodium Chloride (0.9 % Sodium Chloride Flush 3 Ml Syringe) 3 ml IVFLUSH QSHIFT [facility] Last Admin: 08/13/24 08:36 Dose: 3 ml Home Medications ?Medication ?Instructions ?Recorded ?Confirmed ?Last Taken ?Type betamethasone dipropionate 0.05 % 1 appl topical TUFR 08/12/24 08/12/24 08/11/24 History topical ointment bupropion HCl 300 mg 24 hr tablet, 300 mg PO DAILY 08/12/24 08/12/24 08/11/24 History extended release dextroamphetamine-amphetamine ER 10 mg PO DAILY@1200 08/12/24 08/12/24 08/11/24 History 10 mg 24hr capsule,extend release dextroamphetamine-amphetamine ER 30 mg PO DAILY 08/12/24 08/12/24 08/11/24 History 30 mg 24hr capsule,extend release fluoxetine 20 mg capsule 60 mg PO DAILY 08/12/24 08/12/24 08/11/24 History Exam Height,Weight and Vital Signs: Height 6 ft 1 in Weight 120.202 kg Last Vital Signs Temp 98.9 F 08/13/24 10:23 Pulse 89 08/13/24 10:23 Resp 16 08/13/24 10:23 BP 116/81 08/13/24 10:23 Pulse Ox 96 08/13/24 10:23 O2 Del Method Room Air 08/13/24 10:23 O2 Flow Rate 98 08/12/24 20:24 Pertinent Lab Results Pertinent Lab Results: Laboratory Tests 08/12/24 08/12/24 08/12/24 11:39 11:43 13:10 WBC 13.3 H RBC 5.33 Hgb 15.9 Hct 45.3 MCV 85.0 MCH 29.8 MCHC 35.1 RDW 11.9 Plt Count 349 MPV 8.5 L Immature Gran % (Auto) 0.3 Neut % (Auto) 88.6 H Lymph % (Auto) 5.8 L [place] % (Auto) 5.1 Eos % (Auto) 0.0 Baso % (Auto) 0.2 Lymph # (Auto) 0.8 L [place] # (Auto) 0.7 Eos # (Auto) 0.0 Baso # (Auto) 0.0 Abs Immat Gran (auto) 0.04 H Absolute Neuts (auto) 11.8 H Absolute Nucleated RBC 0.000 Nucleated RBC % (auto) 0.0 Sodium 142 Potassium 4.3 Chloride 106 Carbon Dioxide 25 Anion Gap 15 BUN 13 Creatinine 0.84 Estim Creat Clear Calc 158.7 Estimated GFR > 60 POC Glucose 105 Random Glucose 134 H Lactic Acid Lactic Acid F/U @ 2Hr Calcium 10.1 Total Bilirubin 1.2 H AST 16 ALT 18 Alkaline Phosphatase 96 Total Protein 8.0 Albumin 4.9 Lipase 29 Urine Color Urine Appearance Urine pH Ur Specific [place] Urine Protein Urine Glucose (UA) Urine Ketones Urine Blood Urine Nitrite Ur Leukocyte Esterase Influenza Type A (PCR) NEGATIVE Influenza Type B (PCR) NEGATIVE RSV RNA Qual (PCR) NEGATIVE SARS-CoV-2 RNA (RT-PCR) NEGATIVE 08/12/24 08/12/24 08/13/24 13:58 16:53 09:55 WBC RBC Hgb Hct MCV MCH MCHC RDW Plt Count MPV Immature Gran % (Auto) Neut % (Auto) Lymph % (Auto) [place] % (Auto) Eos % (Auto) Baso % (Auto) Lymph # (Auto) [place] # (Auto) Eos # (Auto) Baso # (Auto) Abs Immat Gran (auto) Absolute Neuts (auto) Absolute Nucleated RBC Nucleated RBC % (auto) Sodium Potassium Chloride Carbon Dioxide Anion Gap BUN Creatinine Estim Creat Clear Calc Estimated GFR POC Glucose Random Glucose Lactic Acid 2.2 H* Lactic Acid F/U @ 2Hr 0.9 Calcium Total Bilirubin AST ALT Alkaline Phosphatase Total Protein Albumin Lipase Urine Color Yellow Urine Appearance Clear Urine pH 6.5 Ur Specific [place] 1.015 Urine Protein Negative Urine Glucose (UA) Negative Urine Ketones Negative Urine Blood Negative Urine Nitrite Negative Ur Leukocyte Esterase Negative Influenza Type A (PCR) Influenza Type B (PCR) RSV RNA Qual (PCR) SARS-CoV-2 RNA (RT-PCR) Airway Mallampati Class: III TM Dist: >3cm Neck ROM: Full Heart: rrr Lungs: cta Assessment and Plan Assessment Anesthesia Assessment: Anesthesia Plan Discussed Final Anesthetic Review Family History of Problems with Anesthesia: No History of Problems with Anesthesia: No NPO: Yes ASA Class: III (depression, ADHD) Final Preanesthetic Review: No Changes in Pt Med Stat, Meds/Allgs Chart Reviewe d, Consent Obtained/Reviewed and Anes Risks/Benef Reviewed Patient Risk: Intermediate Procedure Risk: Intermediate Anesthetic Plan Anesthetic Plan: GA Disposition: Standard PACU
--- NOTE | 2024-08-13 15:15 | W.PM.OPN ---
Operative Note Operative Note Date of Service: 08/13/24 Narrative: Preoperative diagnosis: [] Symptomatic gallbladder Postop diagnosis: [] Acute phlegmonous cholecystitis Procedure [] laparoscopic cholecystectomy Surgeon: [] [employer] Aid Technician: [] Tylor Type of Anesthesia: [] General Indication for surgery: [] Edematous phlegmonous Gallbladder with omental adhesions to it. Moderately intrahepatic gallbladder. Findings: [] Patient brought to the operating room, placed on operative table supine position, after an adequate level of general anesthesia was induced, the patient's abdomen was prepped and draped in usual sterile fashion. Using a supraumbilical curvilinear incision, Fitch technique was used to insufflate abdominal cavity to 15 mm of CO2. Upper midline and right subcostal ports were placed under direct laparoscopic view, and the patient placed in reverse Trendelenburg position, and tilted to the left. Findings were as noted above. Because of its marked turgidity and phlegmonous findings, gallbladder was initially decompression with an aspirating device to allow graspers to grasped the gallbladder. Gallbladder was grasped using laparoscopic graspers and retracted superiorly and laterally. Appreciable Soft omental adhesions were swept off the gallbladder were the hilum was approached. Cystic artery and cystic duct were each identified, circumferentially skeletonized, traced directly into the gallbladder, and critical view obtained. Each was clipped proximally x2, distally x1, and transected. The gallbladder , which was moderately intrahepatic, was then cauterized from the gallbladder fossa using Bovie. Specimen placed in an Endo-Catch bag, and retrieved through the umbilical port. Phlegmonous gallbladder was evaluated and had multiple large gallstones. Abdominal cavity was copiously irrigated and secured hemostasis. All ports removed under direct laparoscopic view. Wounds were closed in the following manner; umbilical wound had its fascia reapproximated using interrupted 0 Vicryl sutures. Skin wounds were closed using subcuticular 4-0 Vicryl sutures followed by Steri-Strips and sterile dressings. Wounds were infiltrated 0.5% Marcaine at completion. Sponge, needle, and instrument counts reported correct. Patient tolerated the procedure well and emerged from anesthesia stable condition. EBL minimal
[2024-08-13] MEDS: HYDROmorphone HCl 1 MG/ML SYRINGE 0.5 MG IVPUSH (16:21)
[2024-08-13] MEDS: oxyCODONE HCl Immed Release 5 MG TABLET PO (22:30)
[2024-08-14] VITALS: BP 122/76; PULSE 77; RESP 19; TEMP 36.2; O2SAT 96
[2024-08-14] MEDS: 0.9 % Sodium Chloride Flush 3 ML SYRINGE IVFLUSH
[2024-08-14] MEDS: Lactated Ringers 1,000 ML 80 ML IVCONT (06:12)
--- NOTE | 2024-08-14 07:08 | P.PNGS_ITS ---
Subjective Subjective Date of Service: 08/14/24 Interval history: Eventful evening. Incisional discomfort controlled. Physical Exam 2 Vital Signs: Vital Signs: Last Vital Signs Temp 97.2 F 08/14/24 00:00 Pulse 77 08/14/24 00:00 Resp 19 08/14/24 00:00 BP 122/76 08/14/24 00:00 Pulse Ox 96 08/14/24 00:00 O2 Del Method Room Air 08/14/24 00:00 O2 Flow Rate 6 08/13/24 14:15 BMI result Body Mass Index 35.0 GI: Other: Abdomen is soft. All incisions clean dry and intact Objective Data Active Medications Acetaminophen (Acetaminophen 325 Mg Tablet) 650 mg PO Q6H PRN PRN Reason: Pain, Mild 1-3,fever,headache Bupropion HCl (Bupropion Hcl Xl 300 Mg Tab.Er.24h) 300 mg PO DAILY [facility] Calcium Carbonate (Calcium Carbonate 750 Mg Tab.Chew) 750 mg PO Q4H PRN PRN Reason: Heartburn Fluoxetine HCl (Fluoxetine Hcl 20 Mg Capsule) 60 mg PO DAILY [facility] Haloperidol Lactate (Haloperidol Lactate 5 Mg/Ml Vial) 1 mg IVPUSH ONCE PRN PRN Reason: Nausea and Vomiting Hydromorphone HCl (Hydromorphone Hcl 1 Mg/Ml Syringe) 0.5 mg IVPUSH Q4H PRN; Protocol PRN Reason: Pain, Severe (Pain Scale 7-10) Last Admin: 08/13/24 16:21 Dose: 0.5 mg Documented By: RAISA Lactated Ringer's (Lr) 1,000 mls @ 80 mls/hr IVCONT .[id number] [facility] Last Admin: 08/14/24 06:12 Dose: 80 mls/hr Documented By: EMILIA Ketorolac Tromethamine (Ketorolac Tromethamine 30 Mg/Ml Vial) 30 mg IVPUSH Q6H PRN PRN Reason: Pain, Mild (Pain Scale 1-3) Stop: 08/18/24 16:07 Magnesium Hydroxide (Milk Of Magnesia 30 Ml Oral.Susp) 30 ml PO DAILY PRN PRN Reason: Constipation Melatonin (Melatonin 3 Mg Tablet) 6 mg PO BEDTIME PRN PRN Reason: Insomnia Ondansetron HCl (Ondansetron Hcl 4 Mg/2 Ml Vial) 4 mg IVPUSH Q8H PRN PRN Reason: Nausea and Vomiting Last Admin: 08/12/24 18:36 Dose: 4 mg Documented By: HOOD Oxycodone HCl (Oxycodone Hcl Immed Release 5 Mg Tablet) 5 mg PO Q4H PRN PRN Reason: Pain, Moderate(Pain Scale 4-6) Last Admin: 08/13/24 22:30 Dose: 5 mg Documented By: EMILIA Sodium Chloride (0.9 % Sodium Chloride Flush 3 Ml [facility]ringe) [facility] Last Admin: 08/14/24 00:00 Dose: 3 ml Documented By: EMILIA Labs 08/12/24 11:43 08/12/24 11:43 Labs: Laboratory Results - last 24 hr 08/13/24 09:55 Urine Color Yellow Urine Appearance Clear Urine pH 6.5 Ur Specific [place] 1.015 Urine Protein Negative Urine Glucose (UA) Negative Urine Ketones Negative Urine Blood Negative Urine Nitrite Negative Ur Leukocyte Esterase Negative Microbiology Microbiology Results: Microbiology 08/12/24 14:23 Blood Culture - Preliminary Blood - Venous No growth after 24 hours. 08/12/24 13:58 Blood Culture - Preliminary Blood - Venous No growth after 24 hours. Procedures Date of Service Date of Service: 08/14/24 Progress Note: A&P Assessment and plan (1) Status post laparoscopic cholecystectomy: Status: Acute Plan Current plan is to advance diet, out of bed/ambulate, incentive spirometry, DC home today Time Spent With Patient Time: Total time managing care of this patient today ____ minutes. Quality Stroke Does the patient have a stroke diagnosis?: No VTE Prior VTE?: No VTE Risk Level:: Surgical - low VTE Device Contraindication: N/A - Device Ordered VTE Drug Contraindication: Treatment Not Indicated
[2024-08-14 07:33] VITALS: BP 120/66; PULSE 86; RESP 18; TEMP 37.3; O2SAT 98
--- NOTE | 2024-08-14 08:57 | MHC.CM.PN ---
PT MEDICALLY CLEARED FOR DC HOME SELF-CARE AND OUPT FOLLOW-UP W/SURGEON, PT'S FOR TRANSPORT
[2024-08-14] MEDS: FLUoxetine HCl 20 MG CAPSULE 60 MG PO (09:04)
[2024-08-14] MEDS: buPROPion HCl XL 300 MG TAB.ER.24H PO (09:04)
--- NOTE | 2024-08-14 10:08 | HO.POSTANES ---
Post Anesthesia Evaluation Post Anesthesia Evaluation Date of Service: 08/14/24 Vital Signs: Vital Signs Temp Pulse Resp BP Pulse Ox O2 Del Method 08/14/24 07:33 99.1 F 86 18 120/66 98 Room Air 08/14/24 00:00 97.2 F 77 19 122/76 96 Room Air Anesthesia: General Endotracheal-GETA Mental Status: Awake Pain Control: Satisfactory Nausea/Vomiting: None Hydration: Adequate Anesthesia-Related Issues: No Anes. Related Issues
--- NOTE | 2024-08-14 13:02 | PM.DS ---
DS: Providers Provider Date of Service: 08/14/24 <Nayana Snider PA-C - Last Filed: 08/14/24 13:20> Date of admission: 08/12/24 18:14 <Shonna Colon - Last Filed: 08/14/24 13:19> Date of discharge: 08/14/24 <Nayana Snider PA-C - Last Filed: 08/14/24 13:20> Primary care physician: Radha Ayala MD <Shonna Colon - Last Filed: 08/14/24 13:19> Attending physician on admission: Luis Will <Shonna Colon - Last Filed: 08/14/24 13:19> Attending physician on discharge: Luis Will <Shonna Colon - Last Filed: 08/14/24 13:19> Discharging clinician: Luis Will <Shonna Colon - Last Filed: 08/14/24 13:19> DS: Diagnosis Discharge Diagnosis (1) Status post laparoscopic cholecystectomy: Status: Acute <Shonna Colon - Last Filed: 08/14/24 13:19> DS: Summary Hospital Course Hospital Course: Pt presented to ED 08/12/24 with RUQ and epigastric pain, nausea, and vomiting. US ordered and cholelithiasis with gallbladder wall thickening found. Pt found to have acute cholecystitis. Hospital course: Pt underwent laparoscopic cholestectomy 08/13/[address] Will without any complications. Post-op, pts pain is controlled with analgesics. Abdominal exam benign with clean incisions. No jaundice or scleral icterus noted. VSS. Incisional pain well controlled. No vomiting overnight. Pt able to ambulate on his own. No acute events reported overnight. Pt feels comfortable being discharged today. Encouraged to use incentive spirometry x10/hr and ambulate. Pt will be seen in office for follow up in 3 days. <Shonna Colon - Last Filed: 08/14/24 13:19> Status at Discharge Functional status at discharge: independent ambulation <Shonna Colon - Last Filed: 08/14/24 13:19> Overall status at discharge: patient is back to baseline <Shonna Colon - Last Filed: 08/14/24 13:19> Time Attestation Discharge Coordination Time (in mins): 30 <Nayana Snider PA-C - Last Filed: 08/14/24 13:20> Quality: Safe Use of Opioids Does Pt have an Active Cancer Diagnosis on the Problem List?: No <Shonna Colon - Last Filed: 08/14/24 13:19> Quality: Stroke Does the patient have a stroke diagnosis?: No <Shonna Colon - Last Filed: 08/14/24 13:19> Physical Exam Vital Signs: Vital Signs: Last Vital Signs Temp 99.1 F 08/14/24 07:33 Pulse 86 08/14/24 07:33 Resp 18 08/14/24 07:33 BP 120/66 08/14/24 07:33 Pulse Ox 98 08/14/24 07:33 O2 Del Method Room Air 08/14/24 07:33 O2 Flow Rate 6 08/13/24 14:15 BMI result Body Mass Index 35.0 <Shonna Colon - Last Filed: 08/14/24 13:19> GI: Inspection: No distended and Yes incision (clean) <Nayana Snider PA-C - Last Filed: 08/14/24 13:20> Palpation (GI): Soft to palpation and Tenderness to palpation present (GI) (mild incisional tenderness) <Nayana Snider PA-C - Last Filed: 08/14/24 13:20> DS: Data Data Completed and Pending Pending studies at discharge: Pending at discharge 08/13/24 13:26 Surgical [PTH] Routine <Shonna Colon - Last Filed: 08/14/24 13:19> Labs on day of discharge: Preliminary micro results at discharge 08/12/24 14:23 Blood Culture - Preliminary Blood - Venous No growth after 24 hours. 08/12/24 13:58 Blood Culture - Preliminary Blood - Venous No growth after 24 hours. <Shonna Colon - Last Filed: 08/14/24 13:19> Discharge Plan Discharge Anticipated Discharge Date/Time: 08/14/24 07:11 <Shonna Colon - Last Filed: 08/14/24 13:19> Patient Disposition: Home, Self-Care <Shonna Colon - Last Filed: 08/14/24 13:19> Discharge Diagnosis: Acute phlegmonous cholecystitis <Shonna Colon - Last Filed: 08/14/24 13:19> Acute phlegmonous cholecystitis <Nayana Snider PA-C - Last Filed: 08/14/24 13:20> Referrals: Radha Ayala MD [Primary Care Provider] - 1 Week Luis Will MD [Physician] - 1 Week <Shonna Colon - Last Filed: 08/14/24 13:19> Discharge Medications: New hydrocodone-acetaminophen 5-325 mg tablet 1 tab PO Q4-6H PRN (Reason: pain) Qty: 30 0RF Rx Instructions: Partial Fill upon patient request. Continued dextroamphetamine-amphetamine 10 mg capsule,extended release 24hr 10 mg PO DAILY@1200 dextroamphetamine-amphetamine 30 mg capsule,extended release 24hr 30 mg PO DAILY fluoxetine 20 mg capsule 60 mg PO DAILY bupropion HCl 300 mg tablet extended release 24 hr 300 mg PO DAILY betamethasone dipropionate 0.05 % ointment 1 appl topical TUFR <Shonna Colon - Last Filed: 08/14/24 13:19> Discharge Orders: Discharge Order (Routine); Ordered 08/14/24 Ordered By: Luis Will <Shonna Colon - Last Filed: 08/14/24 13:19> Diet: Advance to usual diet <Shonna Colon - Last Filed: 08/14/24 13:19> Advance to usual diet <Nayana Snider PA-C - Last Filed: 08/14/24 13:20> Activity on Discharge: No heavy lifting <Shonna Colon - Last Filed: 08/14/24 13:19> No heavy lifting <Nayana Snider PA-C - Last Filed: 08/14/24 13:20> Stand Alone Forms: Patient Portal Discharge page <Shonna Lozano Last Filed: 08/14/24 13:19> Print Language: Japanese <Shonna Colon - Last Filed: 08/14/24 13:19> Activity Restrictions/Additional Instructions: Ice to wound 20 minutes several times today and tomorrow. May shower tomorrow. Remove outside dressing only. Leave Steri-Strips intact. No strenuous activities <Shonna Colon - Last Filed: 08/14/24 13:19> Care Plan Goals: Convalescence from surgery <Shonna Colon - Last Filed: 08/14/24 13:19> Health Concerns: No acute issues <Shonna Colon - Last Filed: 08/14/24 13:19> Plan of Treatment: Recuperation <Shonna Colon - Last Filed: 08/14/24 13:19> Assessment: Stable <Shonna Colon - Last Filed: 08/14/24 13:19> Discharge Date/Time: 08/14/24 13:04 <Shonna Colon - Last Filed: 08/14/24 13:19>
== END 2024-08-14 13:04 | disposition home or self-care (01) | DRG 419 ==
LOC: HO.ED 15:35 → HO.EDOVER 18:22 → HO.IMC 19:52
PROVIDERS: Admitting Provider Surgery; Emergency Provider Emergency Medicine; PCP Family Medicine; Visit Provider Surgery
PROC: 0FT44ZZ Resection of Gallbladder, Percutaneous Endoscopic Approach (ICD-10-PCS; CPT 47562; principal; 2024-08-13 10:30)
DX: K81.0 Acute cholecystitis (principal); Z20.822 Contact with and (suspected) exposure to COVID-19; Z79.899 Other long term (current) drug therapy
CPT/HCPCS: 47562; 0241U; 36415; 76705; 80053; 81003; 82947; 83605; 83690; 85025; 87040; 88304; 99222; 99285; J0131; J0690; J1100; J1171; J1200; J2003; J2250; J2270; J2405; J2543; J2704; J2765; J2795; J3010; J7120

== ENCOUNTER → 2024-08-12 11:29 | Outpatient (BNV) | payer OTHER, MEDICAID, SELFPAY | PROVIDERS: Emergency Provider Emergency Medicine; PCP Family Medicine; Visit Provider Radiology Diagnostic Radiology | DX: K80.00 Calculus of gallbladder with acute cholecystitis without obstruction (principal) | CPT/HCPCS: 76705 ==

== ENCOUNTER → 2024-08-12 11:59 | Outpatient (BNV) | payer OTHER, MEDICAID, SELFPAY | PROVIDERS: Emergency Provider Emergency Medicine; PCP Family Medicine; Visit Provider Surgery | DX: K81.0 Acute cholecystitis (principal) | CPT/HCPCS: 99222 ==

== ENCOUNTER 2024-11-20 16:21 | Emergency (ER) | payer OTHER, SELFPAY ==
--- NOTE | 2024-11-20 16:22 | ED.SKABFB ---
HPI - Skin/Abscess/Foreign Bdy General Chief complaint: Wound/Laceration Stated complaint: finger laceration w/box estimator Time Seen by Provider: 11/20/24 16:28 Source: patient, RN notes reviewed and old records reviewed Mode of arrival: ambulatory History of Present Illness ED Provider: Tatiana Arredondo PA-C HPI narrative: 39-year-old male no significant past medical history presenting to the ED complaining of laceration to left middle finger s/p using box estimator to cut vinyl ashley in [employer]. Tetanus up-to-date. Denies injury to other area. Denies anticoagulation use Related Data Home Medications ?Medication ?Instructions ?Recorded ?Confirmed betamethasone dipropionate 0.05 % 1 appl topical TUFR 08/12/24 08/12/24 topical ointment bupropion HCl 300 mg 24 hr tablet, 300 mg PO DAILY 08/12/24 08/12/24 extended release dextroamphetamine-amphetamine ER 10 mg PO DAILY@1200 08/12/24 08/12/24 10 mg 24hr capsule,extend release dextroamphetamine-amphetamine ER 30 mg PO DAILY 08/12/24 08/12/24 30 mg 24hr capsule,extend release fluoxetine 20 mg capsule 60 mg PO DAILY 08/12/24 08/12/24 Previous Rx's ?Medication ?Instructions ?Recorded hydrocodone 5 mg-acetaminophen 325 1 tab PO Q4-6H PRN pain #30 tabs 08/13/24 mg tablet Allergies Allergy/AdvReac Type Severity Reaction Status Date / Time No Known Allergies Allergy Verified 11/20/24 16:25 [No Known Allergies*] Review of Systems Review of Systems: Yes all other systems are reviewed and are negative Constitutional: Constitutional: Reports as per [facility] Past Medical History Attestation statement: The following information was validated with the patient. Source: old records reviewed Medical History Hearing loss Social History Social History Household Members: Spouse and Children Housing: Apartment Do you presently have visiting nurse or other home services: No Patient Tobacco Use Status: Never used Tobacco Second Hand Smoke Exposure: No Advance Directives: No Advance Directives Information Provided: No service: No Physical Exam Vital Signs: Vital Signs: Last Vital Signs Temp 96.1 F L 11/20/24 16:23 Pulse 106 H 11/20/24 16:23 Resp 18 11/20/24 16:23 BP 123/93 H 11/20/24 16:23 Pulse Ox 98 11/20/24 16:23 O2 Del Method Room Air 11/20/24 16:23 BMI result Body Mass Index 33.3 Const: General: cooperative, healthy appearing and no acute distress Orientation/consciousness: patient oriented x3 Limitations: no limitations HEENT: Head: Yes normal to inspection and Yes atraumatic Ears: hearing grossly normal bilaterally General nose exam: Normal external nose present Face and sinus: Yes normal facial exam Eyes: General: appearance normal, both eyes and all related structures EOM: EOMs intact bilaterally Neck: Neck: Yes normal visual inspection and Yes no meningeal signs Resp: Effort & Inspection: normal respiratory effort and no respiratory distress Cardio: Rate: regular rate Skin: Other: Small 0.5cm laceration noted to distal left 3rd digit, volar aspect, next to nail, w/active bleeding. Mildly tender to palpation. Full range of motion to digit intact. NV intact Rashes: no rashes Neuro: General: patient oriented x3, tone normal and no meningeal signs Cranial nerves: Yes CN's II-XII intact bilaterally Gait exam (Neuro): Normal gait present Extrem: General: Yes normal to inspection Course Course Course Narrative: -1646--unable to control bleeding with direct pressure. Will soak in Lido w/epi >1725--soaking and lidocaine with epi controlled bleeding. Dermabond applied Results discussed with patient including worrisome signs and symptoms and strict return precautions, and when to return to the emergency department. They verbalized understanding and feel safe for discharge at this time. Medications Administered Discontinued Medications Generic Name Dose Route Start Last Admin Trade Name Freq PRN Reason Stop Dose Admin Lidocaine/Epinephrine 10 ml 11/20/24 16:52 11/20/24 16:53 Lidocaine Hcl 1%/Epi 1:100,000 10 Ml Vial INFILTRATI 11/20/24 16:53 10 ml ONCE ONE Administration Medical Decision Making Medical Decision Making [facility] Narrative: 39-year-old male no significant past medical history presenting to the ED complaining of laceration to left middle finger s/p using box estimator to cut vinyl ashley in [employer]. On exam mildly tachycardic, PE as noted above. Small bleeding laceration noted to left 3rd digit. Low suspicion for fracture, tendon/ligamental injury or deeper wound. No avulsion. No evidence of cellulitis Plan: Repair wound w/dermabond Please refer to course for remaining clinical decision making, interpretation of labs/imaging results, and discussions with consultants and/or family members. Differential Diagnosis Differential Diagnoses: The differential diagnosis associated with the presentation includes As above External Record Review External record reviewed: Inpatient record, Office record, Outpatient record, Prior outpatient labs, Prior outpatient radiology, Primary care record and Outside ED record Tests considered The following testing was considered but not selected: As above Prescription Management I considered prescription management with: Pain Medication and Antibiotic Chronic Conditions Patient?s care impacted by: Other Social Determinants Patient?s care significantly limited by Social Determinants of Health including: Other Social Determinant of Health Procedures Laceration Laceration 1: Site: hand Side (If applicable): left Size (cm): 0.5 Description: linear Depth: simple, single layer Skin layer closed with: other (Dermabond) Discharge Plan Discharge Clinical Impression: Laceration Patient Disposition: Home, Self-Care Instructions: Finger Laceration (ED) Additional Instructions: Your wounds were repaired today in the emergency department. Keep dry and clean. The skin glue will fall off on its own, the longer it is in place the better Avoid getting wet Do not pick at the area If area begins look infected, is red, there is drainage, streaking, or you have fever please return to the emergency department Prescriptions: No Action dextroamphetamine-amphetamine 10 mg capsule,extended release 24hr 10 mg PO DAILY@1200 dextroamphetamine-amphetamine 30 mg capsule,extended release 24hr 30 mg PO DAILY fluoxetine 20 mg capsule 60 mg PO DAILY bupropion HCl 300 mg tablet extended release 24 hr 300 mg PO DAILY betamethasone dipropionate 0.05 % ointment 1 appl topical TUFR hydrocodone-acetaminophen 5-325 mg tablet 1 tab PO Q4-6H PRN (Reason: pain) Qty: 30 0RF Rx Instructions: Partial Fill upon patient request. Referrals: Radha Ayala MD [Primary Care Provider] - 1 week Print Language: Malian
[2024-11-20 16:23] VITALS: BP 123/93; PULSE 106; RESP 18; TEMP 35.6; O2SAT 98; BMI 33.3
[2024-11-20] MEDS: Lidocaine HCl 1%/Epi 1:100,000 10 ML VIAL INFILTRATI (16:53)
--- NOTE | 2024-11-20 16:53 | PC.NURSE ---
anthony administered by Tatiana FELIX
[2024-11-20 17:25] VITALS: BP 123/93; PULSE 106; RESP 18; TEMP 35.6; O2SAT 98
== END 2024-11-20 17:27 | disposition home or self-care (01) ==
PROVIDERS: Emergency Provider Emergency Medicine; PCP Family Medicine
DX: S61.213A Laceration without foreign body of left middle finger without damage to nail, initial encounter (principal); W26.0XXA Contact with knife, initial encounter; Y93.89 Activity, other specified; Y92.9 Unspecified place or not applicable; Y99.9 Unspecified external cause status
CPT/HCPCS: 12001; 99282; 99284; J2004